=== PATIENT | female | born 1935 | race Caucasian/White ===

== ENCOUNTER 2018-03-15 06:29 | Inpatient (IN) | payer MEDICARE ==
[2018-03-15] VITALS (8 sets, daily range): BP systolic 99–133; BP diastolic 46–76; Ht 167.6 cm; Wt 91.4 kg
[~2018-03-15] VITALS: Ht 167.6 cm; Wt 91.4 kg
--- NOTE | ~2018-03-15 | CN ---
PATIENT NAME:DARRICK YEPEZ MEDICAL RECORD: [id number] : 35 LOCATION:D.MS Marquez2225 ADMIT DATE: 03/15/18 ACCOUNT: [id number] CONSULTING PHYSICIAN: MEET ARORA MD REFERRING PHYSICIAN: DRU CAMACHO MD DATE OF CONSULTATION: 03/15/2018 CONSULT REQUESTING PHYSICIAN: Dr. Camacho REASON FOR CONSULTATION: Dyspnea and hypoxia. HISTORY OF PRESENT ILLNESS: Ms. Yepez is an 82-year-old female who is a very poor historian. The patient was brought into the ER yesterday with a subjective fever and shortness of breath. She has a CTA, which was negative for any thromboembolism or pneumonia, but did show prominent pulmonary artery suggestive of pulmonary hypertension. The patient does have obstructive sleep apnea, but she is not compliant with the CPAP machine and using oxygen only at night. REVIEW OF SYSTEMS: As in history of present illness. PAST MEDICAL HISTORY: 1. Seizure disorder. 2. History of congestive heart failure. 3. COPD. PAST SURGICAL HISTORY: She had cholecystectomy and appendectomy. ALLERGIES: ALLERGIC TO SULFA, ASPIRIN, MEPERIDINE, PENICILLIN AND SHELLFISH. MEDICATIONS: SIRION BIOTECH is reviewed. PHYSICAL EXAMINATION: GENERAL: The patient is now lying comfortably. She is not in acute distress. VITAL SIGNS: The blood pressure is 116/54, pulse is 74, respiration 20, temperature is 98.4, SpO2 is 96% on Venturi mask. HEENT: Conjunctivae are pink. Sclerae are not icteric. NECK: Supple, no JVD. CHEST: The chest excursion is minimal with no wheeze, no rales. HEART: Rhythm regular, normal sound, no murmur. ABDOMEN: Soft, bowel sounds present. No hepatosplenomegaly. RECTAL: Deferred. EXTREMITIES: No cyanosis, no clubbing and 1+ pedal edema. It was tender to touch. CENTRAL NERVOUS SYSTEM: The patient is awake and alert. There are no obvious cranial nerve abnormality. The gait was not tested. LABORATORY DATA: CBC: WBC 9.3, hemoglobin 12.3, hematocrit 39.5, the platelet count 184. Chemistry: Sodium 141, potassium is 2.8, BUN is 9, creatinine 0.7. ProBNP is 323. Troponin is less than 0.017. IMAGING: Chest; CTA of the chest: There is no infiltrate. There is prominent pulmonary vessels. No pulmonary embolism. Mild cardiomegaly. IMPRESSION: CONSULT REPORT [id number] DARRICK YEPEZ 1. Tebie-cs-xuvbwzl hypoxic respiratory failure. 2. Pulmonary hypertension. 3. Acute exacerbation of chronic obstructive pulmonary disease. 4. History of congestive heart failure. 5. Dyspnea on exertion. 6. Obstructive sleep apnea. 7. Hypokalemia. 8. Urinary tract infection. RECOMMENDATION: 1. Continue the empiric antibiotic. 2. Follow up on the cardiac echo to rule out pulmonary hypertension. 3. Supplemental oxygen. The patient does not want a BiPAP or CPAP machine. She is not tolerating. 4. Check the ultrasound of the lower extremity for elevated D-dimer. 5. Further recommendation after the cardiac echo. Dr. Camacho, thank you for involving me in the care of Mrs. Yepez. TRANSINT:[id number] Voice Confirmation ID: [id number] DOCUMENT ID: [id number] MEET ARORA MD at 1301 CC: [id number] DICTATION DATE: 03/15/18 1636 INDUSTRIAL TRUCK OPERATOR: 03/15/18 1807 ADM IN [facility] [address] [place] [address]
[2018-03-15 07:06] LABS: APPEARANCE CLOUDY (CLEAR); BACTERIA MANY /hpf (NONE SEEN); BILIRUBIN NEGATIVE (NEGATIVE); COLOR YELLOW (YELLOW); EPITHELIAL CELLS 0-5 /hpf (0-5); GLUCOSE NEGATIVE (NEGATIVE); KETONE NEGATIVE (NEGATIVE); NITRITE POSITIVE (NEGATIVE); PROTEIN 3+ mg/dL (NEGATIVE); RED CELLS - URINE 0-5 /hpf (0-5); SPECIFIC GRAVITY 1.015 (1.005-1.020); UROBILINOGEN NORMAL (NORMAL)
[2018-03-15 07:15] LABS: BASOPHILS 0.2 % (0-2); EOSINOPHILS 1.5 % (0-7); HEMATOCRIT 39.5 % (36.0-48.0); HEMOGLOBIN 12.3 g/dL (12-16); IMMATURE GRANULOCYTES 0.2 % (0-5); LYMPHOCYTES 7.4 % (15-50); MCH 27.3 pg (26.0-34.0); MCHC 31.1 g/dL (31.0-37.0); MCV 87.8 fL (80.0-100.0); MEAN PLATELET VOLUME 10.4 fL (7.4-10.4); MONOCYTES 11.9 % (2-11); NEUTROPHILS 78.8 % (40-80); PLATELET COUNT 184 10x3/uL (130-400); RDW 18.7 % (11.5-14.5); WBC 9.3 10x3/uL (4.8-10.8)
[2018-03-15 07:40] LABS: ALBUMIN 2.8 g/dL (3.4-5.0); ALKALINE PHOSPHATASE 46 U/L (46-116); ALT (SGPT) 16 U/L (10-68); BILIRUBIN - TOTAL 0.61 mg/dL (0.2-1.3); CALC OSMOLALITY 284 mosm/kg (275-300); CALCIUM 8.3 mg/dL (8.5-10.1); CARBON DIOXIDE 34.6 mmol/L (21.0-32.0); CHLORIDE - SERUM 102 mmol/L (98-107); CKMB 0.3 U/L (0.0-3.6); CREATINE KINASE 21 UL (21-215); CREATININE - SERUM 0.7 mg/dL (0.6-1.3); GLUCOSE 185 mg/dL (74-106); PRO BNP 323 pg/mL (0-450); PROTEIN - SERUM 7.1 g/dL (6.4-8.2); SODIUM 141 mmol/L (136-145); UREA NITROGEN 9 mg/dL (7-18); eGFR NON AFRICAN AMERICAN 85 mL/min (90-120)
[2018-03-15 07:41] LABS: TROPONIN-I < 0.017 ng/mL (0.000-0.060)
[2018-03-15 07:43] LABS: POTASSIUM - SERUM 2.8 mmol/L (3.5-5.1)
[2018-03-15] MEDS ORDERED: VITAMIN D5000 UNIT PO (10:21)
[2018-03-15] MEDS ORDERED: FERROUS SULFAT325 MG PO (10:22)
[2018-03-15] MEDS ORDERED: FIBERCON625 MG PO (10:22)
[2018-03-15] MEDS ORDERED: FLOVENT HFA 11012 GM INH (10:22)
[2018-03-15] MEDS ORDERED: COLACE100 MG PO (10:22)
[2018-03-15] MEDS ORDERED: TAPAZOLE 10 MG10 MG PO (10:23)
[2018-03-15] MEDS ORDERED: KEPPRA500 MG PO (10:23)
[2018-03-15] MEDS ORDERED: MIRALAX17 GM PO (10:23)
[2018-03-15] MEDS ORDERED: SUPER B COMPLE150 MG PO (10:24)
[2018-03-15] MEDS ORDERED: LASIX40 MG PO (10:24)
[2018-03-15] MEDS ORDERED: KLOR-CON 1010 MEQ PO (10:24)
[2018-03-15] MEDS ORDERED: TIROSINT88 MCG PO (17:18)
[2018-03-16 06:01] LABS: BASOPHILS 0.1 % (0-2); EOSINOPHILS 0.1 % (0-7); HEMATOCRIT 38.4 % (36.0-48.0); HEMOGLOBIN 11.8 g/dL (12-16); IMMATURE GRANULOCYTES 0.3 % (0-5); LYMPHOCYTES 9.4 % (15-50); MCHC 30.7 g/dL (31.0-37.0); MCV 87.9 fL (80.0-100.0); MEAN PLATELET VOLUME 11.1 fL (7.4-10.4); MONOCYTES 10.1 % (2-11); PLATELET COUNT 210 10x3/uL (130-400); RBC 4.37 10x6/uL (4.00-5.40); RDW 18.1 % (11.5-14.5); WBC 9.6 10x3/uL (4.8-10.8)
[2018-03-16 06:18] VITALS: BP 135/75
[2018-03-16 06:27] LABS: ALBUMIN 2.7 g/dL (3.4-5.0); ALKALINE PHOSPHATASE 47 U/L (46-116); ALT (SGPT) 16 U/L (10-68); CALCIUM 8.6 mg/dL (8.5-10.1); CARBON DIOXIDE 34.4 mmol/L (21.0-32.0); CHLORIDE - SERUM 107 mmol/L (98-107); GLUCOSE 153 mg/dL (74-106); MAGNESIUM - SERUM 2.1 mg/dL (1.8-2.4); SODIUM 145 mmol/L (136-145)
[2018-03-16 06:28] LABS: CALC OSMOLALITY 291 mosm/kg (275-300); CREATININE - SERUM 0.5 mg/dL (0.6-1.3); POTASSIUM - SERUM 3.4 mmol/L (3.5-5.1); UREA NITROGEN 13 mg/dL (7-18); eGFR NON AFRICAN AMERICAN > 90 mL/min (90-120)
[2018-03-16 08:09] VITALS: BP 133/56
[2018-03-16 16:00] VITALS: BP 136/60
[2018-03-16 21:45] VITALS: BP 155/76
[2018-03-17 05:09] VITALS: BP 142/81
[2018-03-17 06:10] LABS: BASOPHILS 0.3 % (0-2); EOSINOPHILS 4.8 % (0-7); HEMOGLOBIN 10.7 g/dL (12-16); IMMATURE GRANULOCYTES 0.2 % (0-5); LYMPHOCYTES 13.8 % (15-50); MCH 26.8 pg (26.0-34.0); MCHC 30.6 g/dL (31.0-37.0); MCV 87.5 fL (80.0-100.0); MEAN PLATELET VOLUME 10.9 fL (7.4-10.4); MONOCYTES 11.3 % (2-11); NEUTROPHILS 69.6 % (40-80); PLATELET COUNT 210 10x3/uL (130-400); RDW 18.3 % (11.5-14.5)
[2018-03-17 06:26] LABS: WBC 5.9 10x3/uL (4.8-10.8)
[2018-03-17 06:41] LABS: ALBUMIN 2.5 g/dL (3.4-5.0); ALKALINE PHOSPHATASE 36 U/L (46-116); ALT (SGPT) 13 U/L (10-68); BILIRUBIN - TOTAL 0.27 mg/dL (0.2-1.3); CALCIUM 7.8 mg/dL (8.5-10.1); CARBON DIOXIDE 32.6 mmol/L (21.0-32.0); CHLORIDE - SERUM 107 mmol/L (98-107); GLUCOSE 120 mg/dL (74-106); MAGNESIUM - SERUM 1.7 mg/dL (1.8-2.4); PROTEIN - SERUM 6.5 g/dL (6.4-8.2); SODIUM 146 mmol/L (136-145)
[2018-03-17 06:44] LABS: CALC OSMOLALITY 290 mosm/kg (275-300); CREATININE - SERUM 0.7 mg/dL (0.6-1.3); UREA NITROGEN 9 mg/dL (7-18); eGFR NON AFRICAN AMERICAN 85 mL/min (90-120)
[2018-03-17 06:45] LABS: POTASSIUM - SERUM 2.5 mmol/L (3.5-5.1)
[2018-03-17 08:13] VITALS: BP 141/60
[2018-03-17 12:00] VITALS: BP 134/66
[2018-03-18 04:00] VITALS: BP 139/60
[2018-03-18 04:33] LABS: BASOPHILS 0.5 % (0-2); HEMATOCRIT 34.3 % (36.0-48.0); HEMOGLOBIN 10.5 g/dL (12-16); IMMATURE GRANULOCYTES 0.7 % (0-5); MCH 26.7 pg (26.0-34.0); MCHC 30.6 g/dL (31.0-37.0); MCV 87.3 fL (80.0-100.0); MEAN PLATELET VOLUME 10.3 fL (7.4-10.4); MONOCYTES 14.5 % (2-11); NEUTROPHILS 63.3 % (40-80); PLATELET COUNT 199 10x3/uL (130-400); RBC 3.93 10x6/uL (4.00-5.40)
[2018-03-18 04:53] LABS: ALBUMIN 2.4 g/dL (3.4-5.0); ALKALINE PHOSPHATASE 35 U/L (46-116); ALT (SGPT) 15 U/L (10-68); BILIRUBIN - TOTAL 0.22 mg/dL (0.2-1.3); CALC OSMOLALITY 289 mosm/kg (275-300); CALCIUM 8.1 mg/dL (8.5-10.1); CARBON DIOXIDE 32.9 mmol/L (21.0-32.0); CHLORIDE - SERUM 105 mmol/L (98-107); GLUCOSE 135 mg/dL (74-106); POTASSIUM - SERUM 3.2 mmol/L (3.5-5.1); PROTEIN - SERUM 6.3 g/dL (6.4-8.2); SODIUM 145 mmol/L (136-145); UREA NITROGEN 9 mg/dL (7-18)
[2018-03-18 04:54] LABS: CREATININE - SERUM 0.5 mg/dL (0.6-1.3)
[2018-03-18 04:55] LABS: eGFR NON AFRICAN AMERICAN > 90 mL/min (90-120)
[2018-03-18 19:58] VITALS: BP 152/79
[2018-03-19] VITALS: BP 157/76
[2018-03-19 04:00] VITALS: BP 135/71
[2018-03-19 05:30] LABS: BASOPHILS 0.8 % (0-2); EOSINOPHILS 9.5 % (0-7); HEMATOCRIT 34.2 % (36.0-48.0); HEMOGLOBIN 10.4 g/dL (12-16); LYMPHOCYTES 23.4 % (15-50); MCH 26.5 pg (26.0-34.0); MCHC 30.4 g/dL (31.0-37.0); MCV 87.2 fL (80.0-100.0); MEAN PLATELET VOLUME 10.3 fL (7.4-10.4); MONOCYTES 8.9 % (2-11); NEUTROPHILS 56.4 % (40-80); PLATELET COUNT 218 10x3/uL (130-400); RBC 3.92 10x6/uL (4.00-5.40); WBC 5.3 10x3/uL (4.8-10.8)
[2018-03-19 07:08] LABS: ALBUMIN 2.6 g/dL (3.4-5.0); ALKALINE PHOSPHATASE 36 U/L (46-116); ALT (SGPT) 30 U/L (10-68); BILIRUBIN - TOTAL 0.19 mg/dL (0.2-1.3); CALC OSMOLALITY 288 mosm/kg (275-300); CALCIUM 8.2 mg/dL (8.5-10.1); CARBON DIOXIDE 35.6 mmol/L (21.0-32.0); CHLORIDE - SERUM 104 mmol/L (98-107); CREATININE - SERUM 0.6 mg/dL (0.6-1.3); GLUCOSE 127 mg/dL (74-106); MAGNESIUM - SERUM 1.8 mg/dL (1.8-2.4); POTASSIUM - SERUM 3.6 mmol/L (3.5-5.1); PROTEIN - SERUM 5.9 g/dL (6.4-8.2); SODIUM 145 mmol/L (136-145); UREA NITROGEN 7 mg/dL (7-18); eGFR NON AFRICAN AMERICAN > 90 mL/min (90-120)
[2018-03-19 08:25] VITALS: BP 153/75
[2018-03-19 16:00] VITALS: BP 114/58
[2018-03-19 21:11] VITALS: BP 107/51
[2018-03-20] VITALS: BP 142/67
[2018-03-20 05:28] LABS: BASOPHILS 0.3 % (0-2); EOSINOPHILS 7.1 % (0-7); HEMATOCRIT 32.8 % (36.0-48.0); IMMATURE GRANULOCYTES 0.9 % (0-5); LYMPHOCYTES 18.5 % (15-50); MCH 26.7 pg (26.0-34.0); MCHC 30.5 g/dL (31.0-37.0); MCV 87.7 fL (80.0-100.0); MEAN PLATELET VOLUME 10.5 fL (7.4-10.4); MONOCYTES 7.8 % (2-11); NEUTROPHILS 65.4 % (40-80); PLATELET COUNT 239 10x3/uL (130-400); RBC 3.74 10x6/uL (4.00-5.40); RDW 17.8 % (11.5-14.5)
[2018-03-20 05:32] LABS: WBC 6.8 10x3/uL (4.8-10.8)
[2018-03-20 05:53] LABS: ALBUMIN 2.5 g/dL (3.4-5.0); ALKALINE PHOSPHATASE 36 U/L (46-116); CALCIUM 8.4 mg/dL (8.5-10.1); CARBON DIOXIDE 33.3 mmol/L (21.0-32.0); CHLORIDE - SERUM 103 mmol/L (98-107); CREATININE - SERUM 0.7 mg/dL (0.6-1.3); GLUCOSE 171 mg/dL (74-106); MAGNESIUM - SERUM 1.9 mg/dL (1.8-2.4); POTASSIUM - SERUM 3.3 mmol/L (3.5-5.1); PROTEIN - SERUM 6.3 g/dL (6.4-8.2); SODIUM 144 mmol/L (136-145); eGFR NON AFRICAN AMERICAN 85 mL/min (90-120)
[2018-03-20 05:55] LABS: ALT (SGPT) 46 U/L (10-68); CALC OSMOLALITY 289 mosm/kg (275-300); UREA NITROGEN 9 mg/dL (7-18)
[2018-03-20 06:05] VITALS: BP 148/63
[2018-03-20 08:38] VITALS: BP 153/70
[2018-03-20 12:50] VITALS: BP 144/69
[2018-03-20 16:11] LABS: AEROBE ID Final report (()); RESULT 1 Escherichia coli (())
[2018-03-20 20:43] VITALS: BP 150/70
[2018-03-21 05:52] VITALS: BP 117/63
[2018-03-21 05:57] LABS: BASOPHILS 0.5 % (0-2); EOSINOPHILS 8.2 % (0-7); HEMATOCRIT 35.4 % (36.0-48.0); HEMOGLOBIN 10.8 g/dL (12-16); IMMATURE GRANULOCYTES 1.7 % (0-5); LYMPHOCYTES 17.5 % (15-50); MCH 26.7 pg (26.0-34.0); MCHC 30.5 g/dL (31.0-37.0); MCV 87.6 fL (80.0-100.0); MEAN PLATELET VOLUME 10.4 fL (7.4-10.4); MONOCYTES 8.4 % (2-11); NEUTROPHILS 63.7 % (40-80); RBC 4.04 10x6/uL (4.00-5.40); RDW 17.8 % (11.5-14.5); WBC 6.6 10x3/uL (4.8-10.8)
[2018-03-21 06:16] LABS: PLATELET COUNT 314 10x3/uL (130-400)
[2018-03-21 06:36] LABS: CALC OSMOLALITY 287 mosm/kg (275-300); CALCIUM 8.8 mg/dL (8.5-10.1); CARBON DIOXIDE 34.3 mmol/L (21.0-32.0); CHLORIDE - SERUM 102 mmol/L (98-107); CREATININE - SERUM 0.6 mg/dL (0.6-1.3); GLUCOSE 151 mg/dL (74-106); PHOSPHOROUS 3.4 mg/dL (2.5-4.9); SODIUM 144 mmol/L (136-145); UREA NITROGEN 7 mg/dL (7-18); eGFR NON AFRICAN AMERICAN > 90 mL/min (90-120)
[2018-03-21] MEDS ORDERED: CIPRO250 MG PO (10:33)
[2018-03-21 14:44] VITALS: BP 145/71
== END 2018-03-21 16:12 | disposition home health service (06) | DRG 189 ==
LOC: D.ER 06:29 → D.EDHOLD 10:33 → D.MS 10:33
PROVIDERS: Family Medicine; Internal Medicine Pulmonary Disease
DX: J96.21 Acute and chronic respiratory failure with hypoxia (principal); J44.1 Chronic obstructive pulmonary disease with (acute) exacerbation; N39.0 Urinary tract infection, site not specified; J98.11 Atelectasis; I50.32 Chronic diastolic (congestive) heart failure; G47.33 Obstructive sleep apnea (adult) (pediatric); G40.909 Epilepsy, unspecified, not intractable, without status epilepticus; I27.20 Pulmonary hypertension, unspecified; E87.6 Hypokalemia; Z99.81 Dependence on supplemental oxygen; I08.2 Rheumatic disorders of both aortic and tricuspid valves; D50.9 Iron deficiency anemia, unspecified; E03.9 Hypothyroidism, unspecified

== ENCOUNTER 2018-04-16 06:28 | Inpatient (IN) | payer MEDICARE ==
[~2018-04-16] VITALS: Ht 170.2 cm; Wt 95.5 kg
--- NOTE | ~2018-04-16 | CN ---
PATIENT NAME:DARRICK YEPEZ MEDICAL RECORD: [id number] : 35 LOCATION:D. D.2111 ADMIT DATE: 04/16/18 ACCOUNT: [id number] CONSULTING PHYSICIAN: MEET ARORA MD REFERRING PHYSICIAN: PRABHU BENTLEY MD DATE OF CONSULTATION: 04/16/2018 CONSULT REQUESTING PHYSICIAN: Prabhu Bentley MD REASON FOR CONSULTATION: Acute exacerbation of chronic obstructive pulmonary disease, possible pneumonia. HISTORY OF PRESENT ILLNESS: Ms. Yepez is an 82-year-old female. She was admitted a few weeks ago with a COPD exacerbation. She had some wheezing yesterday. There is cough without much sputum production. Denies any fever and chill. There are no night sweats. The daughter brought her to the ER as she does not want her to get worse. REVIEW OF SYSTEMS: As in the history of present illness. PAST MEDICAL HISTORY: 1. COPD. 2. History of congestive heart failure. 3. Obstructive sleep apnea. The patient is noncompliant. 4. Seizure disorder. PAST SURGICAL HISTORY: 1. She has a CA of the breast and left mastectomy. 2. Cholecystectomy. 3. Appendectomy. ALLERGIES: SHE IS ALLERGIC TO SULFA, ASPIRIN, MEPERIDINE, PENICILLIN, AND SHELLFISH. MEDICATIONS: On URX, she just finished a course of Cipro. Now, she is on Zithromax and Rocephin. PERSONAL AND SOCIAL HISTORY: The patient is a nonsmoker, nondrinker. FAMILY HISTORY: Noncontributory. PHYSICAL EXAMINATION: GENERAL: The patient is now lying comfortable. She is not in acute distress. VITAL SIGNS: The blood pressure 138/66, pulse is 87, respiration 20, temperature is 98.2, and SpO2 is 93% on 4 liters nasal cannula. HEENT: Conjunctivae are pink. Sclerae are not icteric. NECK: Supple, no JVD. CHEST: There are basilar crackles. No wheezing. HEART: Rhythm regular with grade II/ systolic murmur. ABDOMEN: Soft, bowel sounds present. No hepatosplenomegaly. RECTAL: Deferred. EXTREMITIES: No cyanosis, no clubbing, no pedal edema. SKIN: Warm, normal turgor. CENTRAL NERVOUS SYSTEM: The patient is awake and alert. There are no obvious cranial nerve abnormalities. The gait was not tested. CONSULT REPORT [id number] DARRICK YEPEZ IMAGING: Chest radiograph, there are bibasilar atelectasis. No consolidation. OTHER LABORATORY DATA: CBC: The WBC is 6.3, hemoglobin 12.7, hematocrit 41.6, the platelet count is 287. There is no left shift. Chemistry: Sodium 143, potassium 4.2, BUN is 11, creatinine 0.5. ABG, the pH is 7.37, pCO2 is 60.0, the pO2 64, bicarbonate is 35. IMPRESSION: 1. Acute exacerbation of chronic obstructive pulmonary disease. 2. Udejp-ix-tmwhvag hypoxic respiratory failure. 3. Possible pneumonia, bibasilar, but there is no fever, no leukocytosis. 4. Obstructive sleep apnea, noncompliant. 5. Dyspnea on exertion. RECOMMENDATIONS: 1. Adjust the dose of methylprednisolone. 2. Continue empiric Zosyn and Rocephin. 3. Albuterol/ipratropium nebulizer. 4. Brovana and budesonide nebulizer. 5. Follow up labs and chest radiograph. Dr. Bentley, thank you for involving me in the care of Ms. Yepez. TRANSINT:[id number] Voice Confirmation ID: [id number] DOCUMENT ID: [id number] MEET ARORA MD at 1234 CC: [id number] DICTATION DATE: 04/16/18 1526 REFRACTORY FURNACE DESIGNER: 04/16/18 2241 DIS IN 04/20/18 [facility] [address] [place] [address]
--- NOTE | ~2018-04-16 | MORECARE ---
CASE MANAGEMENT DISCHARGE SUMMARY PATIENT: DARRICK YEPEZ UNIT: [id number] ADM DATE: 04/16/18 AGE: 82 : 35 SEX: F ROOM/BED: D.2111 AUTHOR: JACKLYN TAVAREZ PHYSICIAN: REFERRING PHYSICIAN: KRISTYN BOWER MD DATE OF SERVICE: 04/18/18 Discharge Plan Patient Name: DARRICK YEPEZ Facility: [facility]:[place] : 1935 Planned Disposition: Home with Home Health Anticipated Discharge Date: 04/20/18 Discharge Date: Expected LOS: 4 Initial Reviewer: [email or web address] Initial Review Date: 04/18/2018 Generated: 04/18/18 10:18 am DCPIA - Discharge Planning Initial Assessment Updated by [email or web address]: Julissa Kramer on 04/18/18 9:12 am * Is the patient Alert and Oriented? Yes * How many steps to enter\exit or inside your home? * PCP ROMERO M[facility]S * Pharmacy [facility] * Preadmission Environment Home with Family * ADLs Partial Dependent * Partial ADLs (Assistance needed) Bathing Dressing Medication Management * Equipment Bedside Commode Nebulizer Other Oxygen Shower Chair Walker * Other Equipment PATIENT HAS TRILOGY MACHINE AT HOME BUT DOES NOT USE IT PER DAUGHTER * List name and contact numbers for known caregivers / representatives who currently or will assist patient after discharge: FREIDA (DAUGHTER) [phone] * Verbal permission to speak to the caregivers and representatives has been obtained from the patient. Yes * Community resources currently utilized Home Health * Please name any agencies selected above. [facility] * Additional services required to return to the preadmission environment? Yes * Can the patient safely return to the preadmission environment? Yes * Has this patient been hospitalized within the prior 30 days at any hospital? Yes Patient Name: DARRICK YEPEZ Page [phone] at 0918 All edits/amendments must be made on the electronic document DICTATION DATE: 04/18/18917 HIGH SCHOOL FOREIGN LANGUAGE TEACHER: VERNA 04/18/18917 RPT#: [id number] DC DATE: STATUS: ADM IN [facility] [address] [facility] [place] [address] END OF REPORT
--- NOTE | ~2018-04-16 | MORECARE ---
CASE MANAGEMENT DISCHARGE SUMMARY PATIENT: DARRICK YEPEZ UNIT: [id number] ADM DATE: 04/16/18 AGE: 82 : 35 SEX: F ROOM/BED: D.2111 AUTHOR: CORBY,DOC PHYSICIAN: REFERRING PHYSICIAN: KRISTYN BOWER MD DATE OF SERVICE: 04/20/18 Discharge Plan Patient Name: DARRICK YEPEZ Facility: [facility]:[place] : 1935 Planned Disposition: Home with Home Health Anticipated Discharge Date: 04/20/18 Discharge Date: 04/20/2018 Expected LOS: 4 Initial Reviewer: [email or web address] Initial Review Date: 04/18/2018 Generated: 04/20/18 4:05 pm Comments DCP- Discharge Planning Updated by [email or web address]: Julissa Kramer on 04/18/18 8:[address] Patient Name: DARRICK YEPEZ Admission Status: ER Accout number: [id number] Admission Date: 04-16-2018 : 1935 Admission Diagnosis: Attending: KRISTYN BOWER Current LOS: 2 Anticipated DC Date: 04-20-2018 Planned Disposition: Home with Home Health Primary Insurance: MEDICARE A & B Discharge Planning Comments: CM MET WITH PATIENT AND SHE STATED TO CALL DAUGHTER. CM SPOKE WITH DAUGHTER (FREIDA) AND SHE STATED SHE WOULD DRIVE PATIENT HOME WHEN DISCHARGED AND THERE WERE NO STEPS OR STAIRS AT THEIR HOME. DAUGHTER STATED SHE HELPED PATIENT WITH HER BATH, DRESSING, AND MEDS. PATIENT HAS A WALKER, BS COMMODE, WHEELCHAIR, SHOWER CHAIR, O2, AND NEBS AT HOME. PATIENT ALSO HAS A TRILOGY MACHINE BUT DOES NOT USE IT PER DAUGHTER. DAUGHTER STATED PATIENT SEES ROMERO MIMS AT A CLINIC HERE IN [place]. PATIENT IS CURRENT WITH [facility] WITH PT, AND SPEECH. CM WILL CONTINUE TO FOLLOW PATIENT WITH D/C NEEDS AND PLANS. DAUGHTER AGREED WITH IMM VERBALLY OVER PHONE. PCP [facility] H[facility]SEIN AT [facility] FREIDA GUTIERREZ (DAUGHTER) [phone] Loan Secretary: Julissa Kramer DCPIA - Discharge Planning Initial Assessment Updated by [email or web address]: Julissa Kramer on 04/18/18 9:12 am * Is the patient Alert and Oriented? Yes * How many steps to enter\exit or inside your home? * PCP ROMERO MIMS * Pharmacy [facility] * Preadmission Environment Home with Family * ADLs Partial Dependent * Partial ADLs (Assistance needed) Bathing Dressing Medication Management * Equipment Bedside Commode Nebulizer Other Oxygen Shower Chair Walker * Other Equipment PATIENT HAS TRILOGY MACHINE AT HOME BUT DOES NOT USE IT PER DAUGHTER * List name and contact numbers for known caregivers / representatives who currently or will assist patient after discharge: FREIDA (DAUGHTER) [phone] * Verbal permission to speak to the caregivers and representatives has been obtained from the patient. Yes * Community resources currently utilized Home Health * Please name any agencies selected above. [facility] * Additional services required to return to the preadmission environment? Yes * Can the patient safely return to the preadmission environment? Yes * Has this patient been hospitalized within the prior 30 days at any hospital? Yes Coverage Notice Reviewer: [email or web address] Christopher Nath Notice Issued Date-Time: 04/18/2018 9:07 Notice Type: IM Discharge Notice Notice Delivered To: Family Member Relationship to Patient: Daughter Box Office Agent Name: FREIDA GUTIERREZ Delivery Method: HAND - Hand Delivered Delaney Days: Prior Verbal Notification: Recipient Understood Notice: Yes Recipient Signature: Yes Med Rec Note Co-signed by Attending: Coverage Notice Comment: Last DP export: 04/20/18 1:41 p Patient Name: DARRICK YEPEZ Page [id number] at 1505 All edits/amendments must be made on the electronic document DICTATION DATE: 04/20/18 1505 BOND RUNNER: VERNA 04/20/18 1505 RPT#: [id number] DC DATE:04/20/18 STATUS: DIS IN [facility] [address] [place] [address] END OF REPORT
--- NOTE | ~2018-04-16 | MORECARE ---
CASE MANAGEMENT DISCHARGE SUMMARY PATIENT: DARRICK YEPEZ UNIT: [id number] ADM DATE: 04/16/18 AGE: 82 : 35 SEX: F ROOM/BED: D.2111 AUTHOR: CORBY,DOC PHYSICIAN: REFERRING PHYSICIAN: KRISTYN BOWER MD DATE OF SERVICE: 04/20/18 Discharge Plan Patient Name: DARRICK YEPEZ Facility: [facility]:[place] : 1935 Planned Disposition: Home with Home Health Anticipated Discharge Date: 04/20/18 Discharge Date: Expected LOS: 4 Initial Reviewer: [email or web address] Initial Review Date: 04/18/2018 Generated: 04/20/18 3:41 pm Comments DCP- Discharge Planning Updated by [email or web address]: Julissa Kramer on 04/18/18 8:[address] Patient Name: DARRICK YEPEZ Admission Status: ER Accout number: [id number] Admission Date: 04-16-2018 : 1935 Admission Diagnosis: Attending: KRISTYN BOWER Current LOS: 2 Anticipated DC Date: 04-20-2018 Planned Disposition: Home with Home Health Primary Insurance: MEDICARE A & B Discharge Planning Comments: CM MET WITH PATIENT AND SHE STATED TO CALL DAUGHTER. CM SPOKE WITH DAUGHTER (FREIDA) AND SHE STATED SHE WOULD DRIVE PATIENT HOME WHEN DISCHARGED AND THERE WERE NO STEPS OR STAIRS AT THEIR HOME. DAUGHTER STATED SHE HELPED PATIENT WITH HER BATH, DRESSING, AND MEDS. PATIENT HAS A WALKER, BS COMMODE, WHEELCHAIR, SHOWER CHAIR, O2, AND NEBS AT HOME. PATIENT ALSO HAS A TRILOGY MACHINE BUT DOES NOT USE IT PER DAUGHTER. DAUGHTER STATED PATIENT SEES ROMERO MIMS AT A CLINIC HERE IN [place]. PATIENT IS CURRENT WITH [facility] WITH PT, AND SPEECH. CM WILL CONTINUE TO FOLLOW PATIENT WITH D/C NEEDS AND PLANS. DAUGHTER AGREED WITH IMM VERBALLY OVER PHONE. PCP ROMERO HUSSEIN AT [facility] FREIDA GUTIERREZ (DAUGHTER) [phone] Ore Grader: Julissa Kramer DCPIA - Discharge Planning Initial Assessment Updated by [email or web address]: Julissa Kramer on 04/18/18 9:12 am * Is the patient Alert and Oriented? Yes * How many steps to enter\exit or inside your home? * PCP ROMERO [facility] * Pharmacy [facility] * Preadmission Environment Home with Family * ADLs Partial Dependent * Partial ADLs (Assistance needed) Bathing Dressing Medication Management * Equipment Bedside Commode Nebulizer Other Oxygen Shower Chair Walker * Other Equipment PATIENT HAS TRILOGY MACHINE AT HOME BUT DOES NOT USE IT PER DAUGHTER * List name and contact numbers for known caregivers / representatives who currently or will assist patient after discharge: FREIDA (DAUGHTER) [phone] * Verbal permission to speak to the caregivers and representatives has been obtained from the patient. Yes * Community resources currently utilized Home Health * Please name any agencies selected above. [facility] * Additional services required to return to the preadmission environment? Yes * Can the patient safely return to the preadmission environment? Yes * Has this patient been hospitalized within the prior 30 days at any hospital? Yes External Providers External Provider: [facility] Next Contact Date: 04/20/2018 Service Request Date: Service Type: Resolution: Reviewer: Comments: Coverage Notice Reviewer: [id number] - Roderick Nath Notice Issued Date-Time: 04/18/2018 9:07 Notice Type: IM Discharge Notice Notice Delivered To: Family Member Relationship to Patient: Daughter Canvas Cutter Hand Name: FREIDA GUTIERREZ Delivery Method: HAND - Hand Delivered Delaney Days: Prior Verbal Notification: Recipient Understood Notice: Yes Recipient Signature: Yes Med Rec Note Co-signed by Attending: Coverage Notice Comment: Last DP export: 04/18/18 8:25 a Patient Name: DARRICK YEPEZ Page [id number] at 1441 All edits/amendments must be made on the electronic document DICTATION DATE: 04/20/18 1440 PACK WORKER: VERNA 04/20/18 1440 RPT#: [id number] DC DATE: STATUS: ADM IN [facility] [address] [place] [address] END OF REPORT
--- NOTE | ~2018-04-16 | MORECARE ---
CASE MANAGEMENT DISCHARGE SUMMARY PATIENT: DARRICK YEPEZ UNIT: [id number] ADM DATE: 04/16/18 AGE: 82 : 35 SEX: F ROOM/BED: D.2111 AUTHOR: CORBY,DOC PHYSICIAN: REFERRING PHYSICIAN: KRISTYN BOWER MD DATE OF SERVICE: 04/18/18 Discharge Plan Patient Name: DARRICK YEPEZ Facility: [facility]:[place] : 1935 Planned Disposition: Home with Home Health Anticipated Discharge Date: 04/20/18 Discharge Date: Expected LOS: 4 Initial Reviewer: [email or web address] Initial Review Date: 04/18/2018 Generated: 04/18/18 10:24 am Comments DCP- Discharge Planning Updated by [email or web address]: Julissa Kramer on 04/18/18 8:[address] Patient Name: DARRICK YEPEZ Admission Status: ER Accout number: [id number] Admission Date: 04-16-2018 : 1935 Admission Diagnosis: Attending: KRISTYN BOWER Current LOS: 2 Anticipated DC Date: 04-20-2018 Planned Disposition: Home with Home Health Primary Insurance: MEDICARE A & B Discharge Planning Comments: CM MET WITH PATIENT AND SHE STATED TO CALL DAUGHTER. CM SPOKE WITH DAUGHTER (FREIDA) AND SHE STATED SHE WOULD DRIVE PATIENT HOME WHEN DISCHARGED AND THERE WERE NO STEPS OR STAIRS AT THEIR HOME. DAUGHTER STATED SHE HELPED PATIENT WITH HER BATH, DRESSING, AND MEDS. PATIENT HAS A WALKER, BS COMMODE, WHEELCHAIR, SHOWER CHAIR, O2, AND NEBS AT HOME. PATIENT ALSO HAS A TRILOGY MACHINE BUT DOES NOT USE IT PER DAUGHTER. DAUGHTER STATED PATIENT SEES ROMERO MIMS AT A CLINIC HERE IN [place]. PATIENT IS CURRENT WITH [facility] WITH PT, AND SPEECH. CM WILL CONTINUE TO FOLLOW PATIENT WITH D/C NEEDS AND PLANS. DAUGHTER AGREED WITH IMM VERBALLY OVER PHONE. PCP ROMERO HUSSEIN AT [facility] FREIDA GUTIERREZ (DAUGHTER) [phone] Set Making Machine Operator: Julissa Kramer DCPIA - Discharge Planning Initial Assessment Updated by [email or web address]: Julissa Kramer on 04/18/18 9:12 am * Is the patient Alert and Oriented? Yes * How many steps to enter\exit or inside your home? * PCP [facility] * Pharmacy [facility] * Preadmission Environment Home with Family * ADLs Partial Dependent * Partial ADLs (Assistance needed) Bathing Dressing Medication Management * Equipment Bedside Commode Nebulizer Other Oxygen Shower Chair Walker * Other Equipment PATIENT HAS TRILOGY MACHINE AT HOME BUT DOES NOT USE IT PER DAUGHTER * List name and contact numbers for known caregivers / representatives who currently or will assist patient after discharge: FREIDA (DAUGHTER) [phone] * Verbal permission to speak to the caregivers and representatives has been obtained from the patient. Yes * Community resources currently utilized Home Health * Please name any agencies selected above. [facility] * Additional services required to return to the preadmission environment? Yes * Can the patient safely return to the preadmission environment? Yes * Has this patient been hospitalized within the prior 30 days at any hospital? Yes Last DP export: 04/18/18 8:18 a Patient Name: DARRICK YEPEZ Page 18282 at 0924 All edits/amendments must be made on the electronic document DICTATION DATE: 04/18/18923 DAY CARE TEACHER: VERNA 04/18/18923 RPT#: [id number] DC DATE: STATUS: ADM IN [facility] [address] [place] [address] END OF REPORT
--- NOTE | ~2018-04-16 | CN ---
PATIENT NAME:DARRICK YEPEZ MEDICAL RECORD: [id number] : [birth year] LOCATION:DJuliana D.2111 ADMIT DATE: 04/16/18 ACCOUNT: [id number] CONSULTING PHYSICIAN: ALEXY REYES MD REFERRING PHYSICIAN: KRISTYN BOWER MD DATE OF CONSULTATION: 04/17/2018 IDENTIFYING DATA: The patient is 82 years old and she is admitted to the hospital on a voluntary basis because of shortness of breath, pneumonia, congestive heart failure, and a urinary tract infection. The patient is currently living with her daughter in a home in [place]. She denies vegetative depressive symptoms. She denies thoughts of harming herself or others. She denies significant cognitive impairment. MENTAL STATUS EXAMINATION: The patient is awake, alert, and oriented to person, place and situation. She correct about the year, but thinks the month is March. Since it is only April 17, I do not think that is a significant error in someone who is her age and sick. She denies neurovegetative depressive symptoms. She denies overt psychotic symptoms as well as thoughts of harming herself or others. She has mild short-term and memory impairment. Her mood is euthymic. Her affect is appropriate. Thought processes are generally goal directed. ASSESSMENT: Mild cognitive impairment. 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 Her symptoms are not representing a danger to herself or others. Given the many advantages of cholinesterase inhibitors, especially in the early process of the disease, it would be reasonable to start her on a low dose of Aricept or Namenda. I think her long-term prognosis is good. I see no evidence of acute or direct dangerousness and certainly see no intrinsic reason alone why she would need to follow up with psychiatrist. If there are concerns about her mental status, it would be reasonable to have her undergo neuropsychological testing. TRANSINT:[id number] Voice Confirmation ID: [id number] DOCUMENT ID: [id number] ALEXY REYES MD at 0946 CC: [id number] DICTATION DATE: 04/17/18 1218 SOLDERER PRODUCTION LINE: 04/17/18 1307 ADM IN [facility] [id number] [place] [address]
--- NOTE | ~2018-04-16 | MORECARE ---
CASE MANAGEMENT DISCHARGE SUMMARY PATIENT: DARRICK YEPEZ UNIT: [id number] ADM DATE: 04/16/18 AGE: 82 : 35 SEX: F ROOM/BED: D.2111 AUTHOR: CORBY,DOC PHYSICIAN: REFERRING PHYSICIAN: KRISTYN BOWER MD DATE OF SERVICE: 04/20/18 Discharge Plan Patient Name: DARRICK YEPEZ Facility: [facility]:[place] : 1935 Planned Disposition: Home with Home Health Anticipated Discharge Date: 04/20/18 Discharge Date: 04/20/2018 Expected LOS: 4 Initial Reviewer: [id number] Initial Review Date: 04/18/2018 Generated: 04/20/18 4:14 pm Comments DCP- Discharge Planning Updated by [email or web address]: Roderick Nath on 04/20/18 2:[address] Patient Name: DARRICK YEPEZ Encounter No: [id number] : 1935 Primary Insurance: MEDICARE A & B Anticipated DC Date: 04-20-2018 Planned Disposition: Home with Home Health External Planned Provider: [facility] RESUMPTION DCP follow-up note: CM RECEIVED ORDER TO ENSURE PT HAS NEBULIZER AND OXYGEN AT HOME. PREVIOUS CM NOTED PT HAS BOTH, RESPIRATORY THERAPIST CONFIRMED WITH PT THAT SHE DOES HAVE BOTH ITEMS AT HOME. CM RECEIVED CALL FROM [facility], , SPOKE TO KANDI WHO PLACED PT ON RESUMPTION SCHEDULE AND HAS ALREADY SPOKEN TO PT. CM FAXED DISCHARGE INFORMATION TO [facility] AT [phone]. Roderick Nath, FREDDIE BURGESS DCP- Discharge Planning Updated by [id number]: Julissa Kramer on 04/18/18 8:[address] Patient Name: DARRICK YEPEZ Admission Status: ER Accout number: [id number] Admission Date: 04-16-2018 : 1935 Admission Diagnosis: Attending: KRISTYN BOWER Current LOS: 2 Anticipated DC Date: 04-20-2018 Planned Disposition: Home with Home Health Primary Insurance: MEDICARE A & B Discharge Planning Comments: CM MET WITH PATIENT AND SHE STATED TO CALL DAUGHTER. CM SPOKE WITH DAUGHTER (FREIDA) AND SHE STATED SHE WOULD DRIVE PATIENT HOME WHEN DISCHARGED AND THERE WERE NO STEPS OR STAIRS AT THEIR HOME. DAUGHTER STATED SHE HELPED PATIENT WITH HER BATH, DRESSING, AND MEDS. PATIENT HAS A WALKER, BS COMMODE, WHEELCHAIR, SHOWER CHAIR, O2, AND NEBS AT HOME. PATIENT ALSO HAS A TRILOGY MACHINE BUT DOES NOT USE IT PER DAUGHTER. DAUGHTER STATED PATIENT SEES [facility] AT A CLINIC HERE IN [place]. PATIENT IS CURRENT WITH [facility] WITH PT, AND SPEECH. CM WILL CONTINUE TO FOLLOW PATIENT WITH D/C NEEDS AND PLANS. DAUGHTER AGREED WITH IMM VERBALLY OVER PHONE. PCP [facility] AT [facility] FREIDA GUTIERREZ (DAUGHTER) [phone] [employer]: Julissa Kramer DCPIA - Discharge Planning Initial Assessment Updated by [id number]: Julissa Kramer on 04/18/18 9:12 am * Is the patient Alert and Oriented? Yes * How many steps to enter\exit or inside your home? * PCP [facility] * Pharmacy [facility] * Preadmission Environment Home with Family * ADLs Partial Dependent * Partial ADLs (Assistance needed) Bathing Dressing Medication Management * Equipment Bedside Commode Nebulizer Other Oxygen Shower Chair Walker * Other Equipment PATIENT HAS TRILOGY MACHINE AT HOME BUT DOES NOT USE IT PER DAUGHTER * List name and contact numbers for known caregivers / representatives who currently or will assist patient after discharge: FREIDA (TIM) [phone] * Verbal permission to speak to the caregivers and representatives has been obtained from the patient. Yes * Community resources currently utilized Home Health * Please name any agencies selected above. [facility] * Additional services required to return to the preadmission environment? Yes * Can the patient safely return to the preadmission environment? Yes * Has this patient been hospitalized within the prior 30 days at any hospital? Yes Coverage Notice Reviewer: [id number] Christopher Nath Notice Issued Date-Time: 04/18/2018 9:07 Notice Type: IM Discharge Notice Notice Delivered To: Family Member Relationship to Patient: Daughter Line Dancer Name: FREIDA GUTIERREZ Delivery Method: HAND - Hand Delivered Delaney Days: Prior Verbal Notification: Recipient Understood Notice: Yes Recipient Signature: Yes Med Rec Note Co-signed by Attending: Coverage Notice Comment: Last DP export: 04/20/18 2:05 p Patient Name: MARLENI DARRICK Page [id number] at 1514 All edits/amendments must be made on the electronic document DICTATION DATE: 04/20/181512 FOOD AND NUTRITION SERVICES ASSISTANT: VERNA 04/20/181512 RPT#: [id number] DC DATE:04/20/18 STATUS: DIS IN [facility] [address] [place] [address] END OF REPORT
[~2018-04-16 06:28] MED LIST: CIPRO250 MG PO; COLACE100 MG PO; FERROUS SULFAT325 MG PO; FIBERCON625 MG PO; FLOVENT HFA 11012 GM INH; KEPPRA500 MG PO; KLOR-CON 1010 MEQ PO; LASIX40 MG PO; MIRALAX17 GM PO; SUPER B COMPLE150 MG PO; TAPAZOLE 10 MG10 MG PO; TIROSINT88 MCG PO; VITAMIN D5000 UNIT PO
[2018-04-16 07:08] LABS: BASOPHILS 0.6 % (0-2); EOSINOPHILS 8.1 % (0-7); HEMATOCRIT 41.6 % (36.0-48.0); HEMOGLOBIN 12.7 g/dL (12-16); IMMATURE GRANULOCYTES 0.5 % (0-5); LYMPHOCYTES 18.8 % (15-50); MCH 27.9 pg (26.0-34.0); MCHC 30.5 g/dL (31.0-37.0); MCV 91.4 fL (80.0-100.0); MONOCYTES 10.2 % (2-11); NEUTROPHILS 61.8 % (40-80); PLATELET COUNT 287 10x3/uL (130-400); RBC 4.55 10x6/uL (4.00-5.40); RDW 17.7 % (11.5-14.5); WBC 6.3 10x3/uL (4.8-10.8)
[2018-04-16 07:26] LABS: ALBUMIN 3.5 g/dL (3.4-5.0); ALKALINE PHOSPHATASE 51 U/L (46-116); ALT (SGPT) 19 U/L (10-68); BILIRUBIN - TOTAL 0.32 mg/dL (0.2-1.3); CALC OSMOLALITY 285 mosm/kg (275-300); CALCIUM 9.2 mg/dL (8.5-10.1); CARBON DIOXIDE 34.6 mmol/L (21.0-32.0); CHLORIDE - SERUM 103 mmol/L (98-107); CREATININE - SERUM 0.5 mg/dL (0.6-1.3); GLUCOSE 127 mg/dL (74-106); POTASSIUM - SERUM 4.2 mmol/L (3.5-5.1); PROTEIN - SERUM 7.5 g/dL (6.4-8.2); SODIUM 143 mmol/L (136-145); UREA NITROGEN 11 mg/dL (7-18); eGFR NON AFRICAN AMERICAN > 90 mL/min (90-120)
[2018-04-16 07:38] LABS: APTT 25.8 SECONDS (22.8-39.4); INR 0.95 (0.85-1.17); PROTIME 12.3 SECONDS (11.6-15.0)
[2018-04-16 07:49] LABS: CREATINE KINASE 32 UL (21-215); PRO BNP 71 pg/mL (0-450); TROPONIN-I < 0.017 ng/mL (0.000-0.060)
[2018-04-16 11:34] VITALS: BP 174/79; BMI 32.6
[2018-04-16 12:06] VITALS: BP 138/66
[2018-04-16 15:58] VITALS: BP 145/69
[2018-04-16] MEDS ORDERED: OXYCODONE-APAP1 T10 PO (19:24)
[2018-04-16 20:23] VITALS: BP 124/60
[2018-04-17 01:46] VITALS: BP 133/64
[2018-04-17 06:13] LABS: BASOPHILS 0.2 % (0-2); EOSINOPHILS 0.2 % (0-7); HEMATOCRIT 42.3 % (36.0-48.0); HEMOGLOBIN 13.1 g/dL (12-16); IMMATURE GRANULOCYTES 0.5 % (0-5); LYMPHOCYTES 6.5 % (15-50); MCV 90.4 fL (80.0-100.0); MEAN PLATELET VOLUME 11.1 fL (7.4-10.4); MONOCYTES 3.2 % (2-11); NEUTROPHILS 89.4 % (40-80); PLATELET COUNT 235 10x3/uL (130-400); RBC 4.68 10x6/uL (4.00-5.40); RDW 17.3 % (11.5-14.5)
[2018-04-17 06:14] LABS: WBC 9.6 10x3/uL (4.8-10.8)
[2018-04-17 06:27] LABS: ALBUMIN 3.4 g/dL (3.4-5.0); ALKALINE PHOSPHATASE 53 U/L (46-116); ALT (SGPT) 26 U/L (10-68); BILIRUBIN - TOTAL 0.35 mg/dL (0.2-1.3); CALC OSMOLALITY 285 mosm/kg (275-300); CARBON DIOXIDE 33.2 mmol/L (21.0-32.0); CHLORIDE - SERUM 100 mmol/L (98-107); CREATININE - SERUM 0.7 mg/dL (0.6-1.3); GLUCOSE 205 mg/dL (74-106); MAGNESIUM - SERUM 1.8 mg/dL (1.8-2.4); POTASSIUM - SERUM 4.3 mmol/L (3.5-5.1); PROTEIN - SERUM 7.5 g/dL (6.4-8.2); SODIUM 141 mmol/L (136-145); UREA NITROGEN 11 mg/dL (7-18); eGFR NON AFRICAN AMERICAN 85 mL/min (90-120)
[2018-04-17 06:45] VITALS: BP 137/64
[2018-04-17 08:42] VITALS: BP 148/76
[2018-04-17 12:21] VITALS: BP 127/59
[2018-04-17 12:41] VITALS: Ht 170.2 cm; Wt 95.5 kg
[2018-04-17 16:54] VITALS: BP 137/60
[2018-04-17 21:01] VITALS: BP 129/67
[2018-04-17 21:09] LABS: APPEARANCE CLEAR (CLEAR); BILIRUBIN NEGATIVE (NEGATIVE); COLOR YELLOW (YELLOW); GLUCOSE NEGATIVE (NEGATIVE); KETONE NEGATIVE (NEGATIVE); NITRITE NEGATIVE (NEGATIVE); PROTEIN NEGATIVE (NEGATIVE); SPECIFIC GRAVITY 1.025 (1.005-1.020); UROBILINOGEN NORMAL (NORMAL)
[2018-04-18] VITALS (7 sets, daily range): BP systolic 92–151; BP diastolic 48–73
[2018-04-18 06:02] LABS: BASOPHILS 0.1 % (0-2); EOSINOPHILS 0.1 % (0-7); HEMATOCRIT 38.6 % (36.0-48.0); HEMOGLOBIN 11.9 g/dL (12-16); IMMATURE GRANULOCYTES 0.3 % (0-5); LYMPHOCYTES 6.9 % (15-50); MCH 28.1 pg (26.0-34.0); MCHC 30.8 g/dL (31.0-37.0); MEAN PLATELET VOLUME 10.8 fL (7.4-10.4); MONOCYTES 6.3 % (2-11); NEUTROPHILS 86.3 % (40-80); RBC 4.24 10x6/uL (4.00-5.40); RDW 17.4 % (11.5-14.5); WBC 9.1 10x3/uL (4.8-10.8)
[2018-04-18 06:08] LABS: PLATELET COUNT 319 10x3/uL (130-400)
[2018-04-18 06:22] LABS: ALKALINE PHOSPHATASE 40 U/L (46-116); BILIRUBIN - TOTAL 0.21 mg/dL (0.2-1.3); CALCIUM 8.4 mg/dL (8.5-10.1); CHLORIDE - SERUM 103 mmol/L (98-107); MAGNESIUM - SERUM 2.2 mg/dL (1.8-2.4); PHOSPHOROUS 3.2 mg/dL (2.5-4.9); POTASSIUM - SERUM 3.7 mmol/L (3.5-5.1); SODIUM 144 mmol/L (136-145)
[2018-04-18 06:23] LABS: ALT (SGPT) 39 U/L (10-68); CALC OSMOLALITY 291 mosm/kg (275-300); CREATININE - SERUM 0.5 mg/dL (0.6-1.3); GLUCOSE 151 mg/dL (74-106); UREA NITROGEN 19 mg/dL (7-18); eGFR NON AFRICAN AMERICAN > 90 mL/min (90-120)
[2018-04-19 04:00] VITALS: BP 134/55
[2018-04-19 06:21] LABS: BASOPHILS 0.1 % (0-2); EOSINOPHILS 0.7 % (0-7); HEMATOCRIT 39.4 % (36.0-48.0); HEMOGLOBIN 11.8 g/dL (12-16); IMMATURE GRANULOCYTES 0.6 % (0-5); LYMPHOCYTES 14.5 % (15-50); MCH 27.5 pg (26.0-34.0); MCHC 29.9 g/dL (31.0-37.0); MCV 91.8 fL (80.0-100.0); MEAN PLATELET VOLUME 10.6 fL (7.4-10.4); MONOCYTES 13.1 % (2-11); PLATELET COUNT 284 10x3/uL (130-400); RBC 4.29 10x6/uL (4.00-5.40); RDW 17.5 % (11.5-14.5); WBC 7.2 10x3/uL (4.8-10.8)
[2018-04-19 06:47] LABS: ALBUMIN 2.9 g/dL (3.4-5.0); ALKALINE PHOSPHATASE 41 U/L (46-116); BILIRUBIN - TOTAL 0.19 mg/dL (0.2-1.3); CALC OSMOLALITY 291 mosm/kg (275-300); CALCIUM 8.3 mg/dL (8.5-10.1); CARBON DIOXIDE 37.3 mmol/L (21.0-32.0); CHLORIDE - SERUM 103 mmol/L (98-107); CREATININE - SERUM 0.6 mg/dL (0.6-1.3); GLUCOSE 115 mg/dL (74-106); MAGNESIUM - SERUM 2.2 mg/dL (1.8-2.4); PROTEIN - SERUM 6.7 g/dL (6.4-8.2); SODIUM 144 mmol/L (136-145); UREA NITROGEN 23 mg/dL (7-18); eGFR NON AFRICAN AMERICAN > 90 mL/min (90-120)
[2018-04-19 06:50] LABS: ALT (SGPT) 65 U/L (10-68); POTASSIUM - SERUM 3.1 mmol/L (3.5-5.1)
[2018-04-19 08:27] VITALS: BP 158/77
[2018-04-19 11:00] VITALS: BP 142/86
[2018-04-19 18:38] VITALS: BP 144/88
[2018-04-19 20:00] VITALS: BP 135/80
[2018-04-20 00:53] VITALS: BP 149/67
[2018-04-20 04:00] VITALS: BP 155/54
[2018-04-20 05:52] LABS: BASOPHILS 0.1 % (0-2); EOSINOPHILS 0 % (0-7); HEMATOCRIT 40.1 % (36.0-48.0); HEMOGLOBIN 12.1 g/dL (12-16); IMMATURE GRANULOCYTES 0.4 % (0-5); LYMPHOCYTES 8.4 % (15-50); MCH 27.6 pg (26.0-34.0); MCHC 30.2 g/dL (31.0-37.0); MCV 91.3 fL (80.0-100.0); NEUTROPHILS 86.1 % (40-80); PLATELET COUNT 265 10x3/uL (130-400); RBC 4.39 10x6/uL (4.00-5.40)
[2018-04-20 06:17] LABS: ALKALINE PHOSPHATASE 41 U/L (46-116); BILIRUBIN - TOTAL 0.28 mg/dL (0.2-1.3); CALCIUM 8.4 mg/dL (8.5-10.1); CARBON DIOXIDE 33.9 mmol/L (21.0-32.0); CHLORIDE - SERUM 103 mmol/L (98-107); CREATININE - SERUM 0.5 mg/dL (0.6-1.3); MAGNESIUM - SERUM 2.2 mg/dL (1.8-2.4); PROTEIN - SERUM 6.7 g/dL (6.4-8.2); SODIUM 143 mmol/L (136-145); UREA NITROGEN 20 mg/dL (7-18); eGFR NON AFRICAN AMERICAN > 90 mL/min (90-120)
[2018-04-20 06:18] LABS: ALT (SGPT) 91 U/L (10-68); CALC OSMOLALITY 291 mosm/kg (275-300); GLUCOSE 164 mg/dL (74-106); POTASSIUM - SERUM 4.6 mmol/L (3.5-5.1)
[2018-04-20 08:58] VITALS: BP 150/78
[2018-04-20] MEDS ORDERED: BROVANA15 MCG/2 M INH (10:17)
[2018-04-20] MEDS ORDERED: ZITHROMAX250 MG PO (10:17)
[2018-04-20] MEDS ORDERED: LASIX20 MG PO (10:18)
[2018-04-20] MEDS ORDERED: PULMICORT0.5 MG/21 UPD (10:19)
== END 2018-04-20 14:42 | disposition home health service (06) | DRG 291 ==
LOC: D.ER 06:28 → D.M2 08:32
PROVIDERS: Emergency Medicine; Family Medicine
DX: I50.33 Acute on chronic diastolic (congestive) heart failure (principal); J18.9 Pneumonia, unspecified organism; J96.21 Acute and chronic respiratory failure with hypoxia; J44.1 Chronic obstructive pulmonary disease with (acute) exacerbation; J44.0 Chronic obstructive pulmonary disease with (acute) lower respiratory infection; G47.33 Obstructive sleep apnea (adult) (pediatric); G40.909 Epilepsy, unspecified, not intractable, without status epilepticus; F41.9 Anxiety disorder, unspecified; I07.1 Rheumatic tricuspid insufficiency; Z85.3 Personal history of malignant neoplasm of breast

== ENCOUNTER → 2019-04-20 20:17 | Outpatient (CLI) | payer MEDICARE ==
[2018-04-17 12:41] VITALS: BMI 32.6
[~2019-04-20 20:17] MED LIST changes: +BROVANA15 MCG/2 M INH; +LASIX20 MG PO; +OXYCODONE-APAP1 T10 PO; +PULMICORT0.5 MG/21 UPD; +ZITHROMAX250 MG PO
[2019-04-20 20:39] LABS: BASOPHILS 0.3 % (0-2); EOSINOPHILS 4.5 % (0-7); HEMATOCRIT 37.3 % (36.0-48.0); HEMOGLOBIN 12.1 g/dL (12-16); IMMATURE GRANULOCYTES 0.6 % (0-5); LYMPHOCYTES 18.3 % (15-50); MCH 28.9 pg (26.0-34.0); MCHC 32.4 g/dL (31.0-37.0); MEAN PLATELET VOLUME 11.9 fL (7.4-10.4); MONOCYTES 8.9 % (2-11); NEUTROPHILS 67.4 % (40-80); PLATELET COUNT 276 10x3/uL (130-400); RBC 4.19 10x6/uL (4.00-5.40); RDW 16.7 % (11.5-14.5); WBC 6.8 10x3/uL (4.8-10.8)
[2019-04-20 20:54] LABS: CALC OSMOLALITY 277 mosm/kg (275-300); CALCIUM 8.9 mg/dL (8.5-10.1); CARBON DIOXIDE 28.2 mmol/L (21.0-32.0); CHLORIDE - SERUM 100 mmol/L (98-107); CREATININE - SERUM 0.5 mg/dL (0.6-1.3); GLUCOSE 146 mg/dL (74-106); POTASSIUM - SERUM 4.7 mmol/L (3.5-5.1); SODIUM 137 mmol/L (136-145); UREA NITROGEN 15 mg/dL (7-18); eGFR NON AFRICAN AMERICAN > 90 mL/min (90-120)
== END | disposition home or self-care (01) ==
LOC: D.LABREF 20:17
PROVIDERS: ATTEND Internal Medicine
DX: J96.22 Acute and chronic respiratory failure with hypercapnia (principal); I50.20 Unspecified systolic (congestive) heart failure; Z99.11 Dependence on respirator [ventilator] status

== ENCOUNTER → 2019-04-28 16:55 | Outpatient (CLI) | payer MEDICARE ==
[2018-04-17 12:41] VITALS: BMI 32.6
== END | disposition home or self-care (01) ==
LOC: D.LABREF 16:55
PROVIDERS: ATTEND Specialist
DX: R50.81 Fever presenting with conditions classified elsewhere (principal)

== ENCOUNTER 2020-12-05 19:16 | Observation (INO) | payer MEDICARE ==
[~2020-12-05] VITALS: Ht 170.2 cm; Wt 72.6 kg
[2020-12-05 19:00] VITALS: BP 197/92
--- NOTE | 2020-12-05 20:29 | NUR ---
UPON ARRIVAL, HOME VENTILATOR WAS INSPECTED. THE POWER CORD APPEARED TO HAVE NO DAMAGE AND WAS CLEAN. DAUGHTER AT BEDSIDE. FOUL SMELL WAS NOTICED UPON INSPECTION OF THE TRACH. SPUTUM SAMPLE COLLECTED AND SENT TO LAB. TRACH TIE WAS REPLACED, GAUZE WAS CHANGED, PT SUCTIONED, AND STOMA SITE CLEANSED WITH STERILE TECHNIQUE.
[2020-12-05 21:16] VITALS: BP 193/89
[2020-12-05 22:00] LABS: BASOPHILS 0.3 % (0-2); EOSINOPHILS 0.7 % (0-7); HEMATOCRIT 39.7 % (36.0-48.0); HEMOGLOBIN 12.7 g/dL (12-16); MCH 27.9 pg (26.0-34.0); MEAN PLATELET VOLUME 8.3 fL (7.4-10.4); MONOCYTES 5.9 % (2-11); NEUTROPHILS 87.1 % (40-80); PLATELET COUNT 325 10x3/uL (130-400); RBC 4.57 10x6/uL (4.00-5.40); RDW 14.2 % (11.5-14.5); WBC 20.9 10x3/uL (4.8-10.8)
[2020-12-05 22:04] LABS: AMORPHOUS SEDIMENT RARE LPF (<FEW); BACTERIA FEW HPF (<MOD); BILIRUBIN NEGATIVE (NEGATIVE); KETONE 2+ mg/dL (< 1+); NITRITE NEGATIVE (NEGATIVE); SQUAMOUS EPITHELIAL 12 HPF (0-4); UROBILINOGEN 4 mg/dL (< 2); WHITE CELLS - URINE >182 HPF (0-4)
[2020-12-05 22:04] LABS: INR 1.22 (0.85-1.17); PROTIME 14.3 SECONDS (11.6-15.0)
[2020-12-05 22:06] LABS: CALC OSMOLALITY 274 mosm/kg (275-300); CALCIUM 9.1 mg/dL (8.5-10.1); CARBON DIOXIDE 36.1 mmol/L (21.0-32.0); CHLORIDE - SERUM 98 mmol/L (98-107); CREATININE - SERUM 0.5 mg/dL (0.6-1.3); GLUCOSE 139 mg/dL (74-106); POTASSIUM - SERUM 3.8 mmol/L (3.5-5.1); SODIUM 137 mmol/L (136-145); UREA NITROGEN 11 mg/dL (7-18); eGFR NON AFRICAN AMERICAN > 90 mL/min (90-120)
[2020-12-05 22:24] LABS: ALBUMIN 2.6 g/dL (3.4-5.0); ALKALINE PHOSPHATASE 55 U/L (30-120); ALT (SGPT) 13 U/L (10-68); BILIRUBIN - TOTAL 0.44 mg/dL (0.2-1.3); CKMB 1.3 U/L (0.0-3.6); CREATINE KINASE 29 UL (21-215); PRO BNP 851 pg/mL (0-450); PROTEIN - SERUM 7.7 g/dL (6.4-8.2)
[2020-12-05 22:25] LABS: TROPONIN-I < 0.017 ng/mL (0.000-0.060)
[2020-12-05 22:59] LABS: AMYLASE - SERUM 12 U/L (25-115)
[2020-12-05 23:00] LABS: LIPASE 18 U/L (73-393)
[2020-12-06 00:03] VITALS: BP 135/76
[2020-12-06 01:08] LABS: SARS-CoV-2 ANTIGEN NEGATIVE- SARS-COV-2 (NEGATIVE)
[2020-12-06 03:30] LABS: CKMB 1.3 U/L (0.0-3.6); CREATINE KINASE 36 UL (21-215)
[2020-12-06 03:33] LABS: TROPONIN-I < 0.017 ng/mL (0.000-0.060)
--- NOTE | 2020-12-06 03:57 | NUR ---
TRACH SUCTIONED PER RT. MODERATE AMOUNT WHITE SECRETIONS
[2020-12-06 04:32] VITALS: BP 111/57
--- NOTE | 2020-12-06 07:30 | NUR ---
PATIENT SUPINE ON STRETCHER. AWAKE AND ALERT. MOUTHS WORDS ONLY, NO SPEECH WITH TRACH. PATIENT HAS COPIOUS AMOUNT OF TISSUES WITH SPIT UP MUCOUS ON THEM SCATTERED ON FLOOR AROUND STRETCHER AND ON THE STRETCHER. EMESIS BAG GIVEN AND INSTRUCTED PATIENT TO PLACE TISSUES IN IT.
[2020-12-06 08:16] VITALS: BP 130/74
[2020-12-06 08:40] VITALS: BMI 25.0
--- NOTE | 2020-12-06 08:40 | NUR ---
AHA DIET SERVED. PATIENT ABLE TO EAT WITH MINIMAL ASSISTANCE.
[2020-12-06 10:11] LABS: BASOPHILS 0.4 % (0-2); EOSINOPHILS 1.5 % (0-7); HEMATOCRIT 39.1 % (36.0-48.0); HEMOGLOBIN 12.7 g/dL (12-16); LYMPHOCYTES 7.8 % (15-50); MCH 28.1 pg (26.0-34.0); MCHC 32.4 g/dL (31.0-37.0); MCV 86.7 fL (80.0-100.0); MEAN PLATELET VOLUME 8.7 fL (7.4-10.4); MONOCYTES 6.1 % (2-11); NEUTROPHILS 84.2 % (40-80); PLATELET COUNT 354 10x3/uL (130-400); RBC 4.52 10x6/uL (4.00-5.40); RDW 14.5 % (11.5-14.5)
--- NOTE | 2020-12-06 10:30 | NUR ---
COMPLETE BED BATH WITH CHLORHEXIDINE GIVEN. PATIENT ALSO CLEANED OF LARGE LIQUID STOOL. BUTTOCKS AND SACRUM EXCORIATED WITH DERMATITIS TYPE WOUND. SCATTERED STAGE 2 PRESSURE INJURY ALSO PRESENT. BARRIER CREAM APPLIED. JOAQUIN CARE PERFORMED. ORAL CARE PER PATIENT.
[2020-12-06 10:32] LABS: WBC 15.2 10x3/uL (4.8-10.8)
[2020-12-06 10:56] LABS: ALBUMIN 2.7 g/dL (3.4-5.0); ALKALINE PHOSPHATASE 68 U/L (30-120); ALT (SGPT) 14 U/L (10-68); BILIRUBIN - TOTAL 0.39 mg/dL (0.2-1.3); CALC OSMOLALITY 276 mosm/kg (275-300); CALCIUM 8.8 mg/dL (8.5-10.1); CARBON DIOXIDE 34.5 mmol/L (21.0-32.0); CHLORIDE - SERUM 96 mmol/L (98-107); CREATININE - SERUM 0.4 mg/dL (0.6-1.3); GLUCOSE 164 mg/dL (74-106); MAGNESIUM - SERUM 1.9 mg/dL (1.8-2.4); POTASSIUM - SERUM 3.7 mmol/L (3.5-5.1); PRO BNP 463 pg/mL (0-450); SODIUM 137 mmol/L (136-145); UREA NITROGEN 9 mg/dL (7-18); eGFR NON AFRICAN AMERICAN > 90 mL/min (90-120)
[2020-12-06 11:18] LABS: CKMB 0.7 U/L (0.0-3.6); CREATINE KINASE 47 UL (21-215); TROPONIN-I < 0.016 ng/mL (0.000-0.060)
--- NOTE | 2020-12-06 11:30 | NUR ---
PATIENT COUGHING FORCEFULLY. TRACH SUCTIONED FOR COPIOUS SECRETIONS. ATTEMPTED TO TEACH PATIENT TO USE YANKEUR SUCTION CATHETER TO CLEAR ORAL MUCOUS. PATIENT REFUSED. CONTINUES TO THROW TISSUES WITH SPUTUM ON THE BED AND FLOOR.
--- NOTE | 2020-12-06 12:28 | NUR ---
DR. MALIK NOTIFIED OF PATIENT C/O HEADACHE AND RIGHT LEG PAIN. HYDROCODONE ORDERED.
--- NOTE | 2020-12-06 13:10 | NUR ---
GENTAMICIN INFUSION STOPPED PER JOCELINE IN PHARMACY.
--- NOTE | 2020-12-06 13:11 | NUR ---
REPORT RECEIVED FROM ERICK NIEVES RN AND CARE TRANSFERRED TO ABBY GALVAN
[2020-12-06 14:26] VITALS: Ht 170.2 cm; Wt 72.6 kg
[2020-12-06 14:46] LABS: T4 THYROXIN - FREE 1.34 ng/dL (0.76-1.46); THYROID STIMULATING HORMONE 0.56 uIU/mL (0.36-3.74)
--- NOTE | 2020-12-06 15:09 | NUR ---
PATIENT IS REFUSING CT AT THIS TIME. HCP CALLED BY ED TO NOTIFY, AWAITING CALL BACK FROM HCP.
[2020-12-07 01:30] VITALS: BP 126/68
--- NOTE | 2020-12-07 01:30 | NUR ---
PT GIVEN NEW BOX OF TISSUES. PT SUCTIONED COPIOUS AMOUNTS.
--- NOTE | 2020-12-07 02:10 | NUR ---
1000 ML DRAINED FROM JOAQUIN. DENIES NEEDS.
[2020-12-07 03:00] VITALS: BP 135/74
--- NOTE | 2020-12-07 03:00 | NUR ---
PT TURNED AND CLEANED AT THIS TIME. OINTMENT APPLIED TO BEDSORES TO BUTTOCKS.
[2020-12-07 05:01] VITALS: BP 125/64
--- NOTE | 2020-12-07 06:00 | NUR ---
PT GIVEN BOX OF TISSUES. PT JOAQUIN DRAINED TOLERATED WELL. PT SUCTIONED AT THIS TIME.
--- NOTE | 2020-12-07 06:59 | NUR ---
RT AT BEDSIDE.
[2020-12-07 07:10] VITALS: BP 133/67
[2020-12-07 09:02] LABS: ALBUMIN 2.6 g/dL (3.4-5.0); ALKALINE PHOSPHATASE 56 U/L (30-120); ALT (SGPT) 17 U/L (10-68); BILIRUBIN - TOTAL 0.25 mg/dL (0.2-1.3); CALC OSMOLALITY 283 mosm/kg (275-300); CALCIUM 9.1 mg/dL (8.5-10.1); CARBON DIOXIDE 38.1 mmol/L (21.0-32.0); CHLORIDE - SERUM 98 mmol/L (98-107); CREATININE - SERUM 0.4 mg/dL (0.6-1.3); GLUCOSE 166 mg/dL (74-106); MAGNESIUM - SERUM 2.2 mg/dL (1.8-2.4); PHOSPHOROUS 2.9 mg/dL (2.5-4.9); POTASSIUM - SERUM 3.7 mmol/L (3.5-5.1); PRO BNP 614 pg/mL (0-450); PROTEIN - SERUM 7.8 g/dL (6.4-8.2); SODIUM 141 mmol/L (136-145); UREA NITROGEN 11 mg/dL (7-18); eGFR NON AFRICAN AMERICAN > 90 mL/min (90-120)
[2020-12-07 09:14] LABS: BASOPHILS 0.3 % (0-2); EOSINOPHILS 0 % (0-7); HEMATOCRIT 41.1 % (36.0-48.0); HEMOGLOBIN 13.4 g/dL (12-16); LYMPHOCYTES 9.6 % (15-50); MCH 28.4 pg (26.0-34.0); MCHC 32.5 g/dL (31.0-37.0); MCV 87.5 fL (80.0-100.0); MEAN PLATELET VOLUME 8.7 fL (7.4-10.4); NEUTROPHILS 83.1 % (40-80); PLATELET COUNT 404 10x3/uL (130-400)
[2020-12-07 09:20] LABS: WBC 9.8 10x3/uL (4.8-10.8)
--- NOTE | 2020-12-07 09:54 | NUR ---
CHANGED PTS POSITION TO LEFT SIDE. MEDS GIVEN THROUGH PEG TUBE. PT JOEY WELL. TUBE PATENT.
--- NOTE | 2020-12-07 11:01 | NUR ---
DR. MALIK GOING TO [facility] PT. TO HOME
[2020-12-07] MEDS ORDERED: ZITHROMAX250 MG PO (14:45)
[2020-12-07] MEDS ORDERED: PERFOROMIS20 MCG/21 UPD (14:46)
[2020-12-07] MEDS ORDERED: KEPPRA500 MG PEG (14:46)
[2020-12-07] MEDS ORDERED: LEVOFLOXACIN500 MG PO (14:48)
--- NOTE | 2020-12-07 16:46 | NUR ---
PATIENT GIVEN BED BATH BY NURSE AND REPOSITIONED.
== END 2020-12-07 20:36 | disposition home or self-care (01) ==
LOC: D.ER 19:16 → D.EDHOLD 12-06 01:04 → OBSVTIME 12-06 01:04 → D.EDHOLD 12-07 20:36
PROVIDERS: Emergency Medicine; ADMIT Emergency Medicine; ATTEND Emergency Medicine
DX: T83.511A Infection and inflammatory reaction due to indwelling urethral catheter, initial encounter (principal); N39.0 Urinary tract infection, site not specified; G89.29 Other chronic pain; M25.561 Pain in right knee; I10 Essential (primary) hypertension; D72.829 Elevated white blood cell count, unspecified; J44.9 Chronic obstructive pulmonary disease, unspecified; Z99.11 Dependence on respirator [ventilator] status